=== PATIENT | male | born 1985 | race African-American/Black ===

== ENCOUNTER 2021-02-05 10:58 | Emergency (ER) | payer OTHER, SELFPAY ==
[2021-02-05] MEDS ORDERED: Ibuprofen 200 MG TAB ONE (11:59)
== END 2021-02-05 12:52 | disposition home or self-care (01) ==
LOC: CSHERS 10:58
DX: S16.1XXA Strain of muscle, fascia and tendon at neck level, initial encounter (principal); M25.562 Pain in left knee; M25.572 Pain in left ankle and joints of left foot; F17.200 Nicotine dependence, unspecified, uncomplicated; V89.2XXA Person injured in unspecified motor-vehicle accident, traffic, initial encounter